=== PATIENT | male | born 1975 | race Native Hawaiian/Other Pacific Islander ===

== ENCOUNTER 2018-11-06 06:01 | Emergency (ER) | payer OTHER ==
[~2018-11-06] VITALS: Ht 188 cm; Wt 117.9 kg
[2018-11-06 06:05] VITALS: TEMP 97.5
[2018-11-06 06:29] LABS: PLATELET COUNT 242 K/uL (142-355)
[2018-11-06 10:39] VITALS: BP 130/79
== END 2018-11-06 10:39 | disposition home or self-care (01) ==
LOC: ED 06:01
PROVIDERS: Family Medicine
DX: N20.1 Calculus of ureter (principal); N23 Unspecified renal colic
CPT/HCPCS: 36415; 80053; 81000; 82150; 83690; 85027; 96365; 96374; 96375; 96376; 99284; J1885; J2405; Q9963

== ENCOUNTER 2019-03-13 11:50 | Emergency (ER) | payer OTHER ==
[~2019-03-13] VITALS: Ht 188 cm; Wt 134.7 kg
[2019-03-13 11:55] VITALS: TEMP 97.7
[2019-03-13 12:22] LABS: PLATELET COUNT 241 K/uL (142-355)
[2019-03-13 12:35] LABS: POTASSIUM 4.1 mmol/L (3.6-5.2); SODIUM 140 mmol/L (136-145)
[2019-03-13 12:38] LABS: PARTIAL THROMBOPLASTIN TIME 24.7 SECONDS (24.5-33.6)
[2019-03-13 14:59] VITALS: BP 132/79
== END 2019-03-13 15:13 | disposition home or self-care (01) ==
LOC: ED 11:50
PROVIDERS: Student in an Organized Health Care Education/Training Program
DX: R07.89 Other chest pain (principal)
CPT/HCPCS: 36415; 80048; 83735; 83880; 84484; 85027; 85610; 85730; 93005; 99284

== ENCOUNTER 2020-03-30 10:53 | Outpatient (CLI) | payer OTHER ==
[2020-03-30 11:35] LABS: PLATELET COUNT 398 K/uL (142-355)
[2020-03-30 11:59] LABS: POTASSIUM 3.8 mmol/L (3.6-5.2)
== END 2020-03-30 18:50 | disposition home or self-care (01) ==
LOC: RAD 10:53
PROVIDERS: Nurse Practitioner Family
DX: Z00.00 Encounter for general adult medical examination without abnormal findings (principal); L50.8 Other urticaria; E66.9 Obesity, unspecified; R53.83 Other fatigue; Z79.899 Other long term (current) drug therapy; M25.50 Pain in unspecified joint; M25.471 Effusion, right ankle; M25.40 Effusion, unspecified joint
CPT/HCPCS: 36415; 80053; 80061; 83036; 84153; 84403; 84439; 84443; 85027; 85651; 86038; 86140

== ENCOUNTER 2020-04-19 09:10 | Outpatient (CLI) | payer OTHER ==
[2020-04-19 09:53] LABS: PLATELET COUNT 313 K/uL (142-355)
[2020-04-19 10:15] LABS: POTASSIUM 3.6 mmol/L (3.6-5.2)
== END 2020-04-19 20:06 | disposition home or self-care (01) ==
LOC: LABW 09:10
PROVIDERS: Internal Medicine Rheumatology
DX: M06.4 Inflammatory polyarthropathy (principal); R21 Rash and other nonspecific skin eruption; R53.83 Other fatigue; R70.0 Elevated erythrocyte sedimentation rate; R79.89 Other specified abnormal findings of blood chemistry
CPT/HCPCS: 36415; 80053; 82728; 82785; 84550; 85027; 86160; 86162; 86200; 86235; 86430; 86592; 86704; 86706; 86757; 87340; 87522